=== PATIENT | female | born 1980 | race Two or more races ===

== ENCOUNTER 2019-12-04 22:58 | Emergency (ER) | payer OTHER ==
[~2019-12-04] VITALS: Ht 170.2 cm; Wt 70.5 kg
[2019-12-04 23:34] VITALS: BP 134/93
== END 2019-12-05 02:50 | disposition left against medical advice (07) ==
LOC: EMS 22:58
DX: R10.9 Unspecified abdominal pain (principal); Z53.21 Procedure and treatment not carried out due to patient leaving prior to being seen by health care provider